=== PATIENT | male | born 2000 | race Caucasian/White ===

== ENCOUNTER 2023-02-25 17:10 | Emergency (ER) | payer BC ==
[~2023-02-25] VITALS: Ht 182.9 cm; Wt 68.0 kg
[~2023-02-25 17:10] MED LIST: ALBU90I INH; ALBU90OI INH; AMOCLA250S PO; AMOX50SU PO; CODACEE120 PO; PRED20 PO; RXAMOCLASU PO; RXCODGUASY PO
[2023-02-25 17:29] VITALS: BP 149/76
== END 2023-02-25 18:42 | disposition home or self-care (01) ==
LOC: ER 17:10
DX: J06.9 Acute upper respiratory infection, unspecified (principal); B34.9 Viral infection, unspecified; Z20.822 Contact with and (suspected) exposure to COVID-19
CPT/HCPCS: 96372; 99283-25; A9270; J1885

== ENCOUNTER 2023-03-01 10:14 | Emergency (ER) | payer BC ==
[~2023-03-01] VITALS: Ht 162.6 cm; Wt 59.0 kg
[2023-03-01 10:20] VITALS: BP 113/92
[2023-03-01] MEDS ORDERED: PENVK500 PO (10:36)
== END 2023-03-01 10:50 | disposition home or self-care (01) ==
LOC: ER 10:14
DX: J02.0 Streptococcal pharyngitis (principal); B95.5 Unspecified streptococcus as the cause of diseases classified elsewhere; Z88.2 Allergy status to sulfonamides
CPT/HCPCS: 87430; 99282; A9270; J1100

== ENCOUNTER 2023-03-09 07:13 | Emergency (ER) | payer BC ==
[~2023-03-09] VITALS: Ht 182.9 cm; Wt 68.0 kg
[~2023-03-09 07:13] MED LIST changes: +PENVK500 PO
[2023-03-09 07:35] VITALS: BP 132/79
[2023-03-09] MEDS ORDERED: Zithromax250 MG PO (08:25)
== END 2023-03-09 08:40 | disposition home or self-care (01) ==
LOC: ER 07:13
DX: J02.0 Streptococcal pharyngitis (principal); Z88.2 Allergy status to sulfonamides
CPT/HCPCS: 99282; A9270; J1100

== ENCOUNTER 2023-03-13 12:16 | Emergency (ER) | payer BC ==
[~2023-03-13] VITALS: Ht 182.9 cm; Wt 66.0 kg
[~2023-03-13 12:16] MED LIST changes: +Zithromax250 MG PO
[2023-03-13 12:46] LABS: Hematocrit 42.6 % (37.0-53.0); Hemoglobin 14.7 g/dL (13.5-17.5); Mean Corpuscular HGB 29.1 pg (26.0-34.0); Mean Corpuscular HGB Conc 34.5 g/dL (31.5-36.5); Mean Corpuscular Volume 84 fL (80-100); Mean Platelet Volume 9.9 fL (9.1-12.4); Platelet Count 228 K/mm3 (150-400); RDW Coefficient Variation 13.2 % (11.7-14.2); RDW Standard Deviation 40.2 fL (35.1-46.3); Red Blood Cell Count 5.05 M/mm3 (4.30-5.90); White Blood Cell Count 24.55 K/mm3 (4.00-11.30)
[2023-03-13 13:17] LABS: Albumin, Blood 3.2 g/dL (3.4-5.0); Albumin/Globulin Ratio 0.7 (0.8-1.8); Bun/Creatinine Ratio 17.8 (12.0-20.0); C-REACTIVE PROTEIN, EXT RANGE 0.496 mg/dL (0.000-0.300); Creatinine, Blood 0.73 mg/dL (0.60-1.20); Globulin, Blood 4.9 g/dL (2.2-4.0); Potassium, Blood 3.7 mmol/L (3.5-5.5); Total Protein, Blood 8.1 g/dL (6.4-8.2)
[2023-03-13 13:56] LABS: BASOPHILS PERCENT MAN 0 % (0-2); EOSINOPHILS PERCENT MAN 0 % (0-6); LYMPHOCYTES % ATYPICAL MANUAL 6 % (0-0); LYMPHOCYTES ABSOLUTE MAN 18.16 K/mm3 (0.84-5.20); LYMPHOCYTES PERCENT MAN 68 % (21-46); METAMYELOCYTE ABSOLUTE MAN 0.24 K/mm3 (0.00-0.00); METAMYELOCYTE PERCENT MAN 1 % (0-0); MONOCYTES ABSOLUTE MAN 0.73 K/mm3 (0.16-1.47); MONOCYTES PERCENT MAN 3 % (4-13); MYELOCYTE ABSOLUTE MAN 0.24 K/mm3 (0.00-0.00); MYELOCYTE PERCENT MAN 1 % (0-0); NEUTROPHILS ABSOLUTE MAN 5.15 K/mm3 (1.96-9.15); SEG NEUTROPHILS PERCENT MAN 21 % (41-73); TOTAL CELLS COUNTED 100
[2023-03-13 15:40] VITALS: BP 127/72
== END 2023-03-13 15:46 | disposition home or self-care (01) ==
LOC: ER 12:16
PROVIDERS: Physician Assistant
DX: B27.99 Infectious mononucleosis, unspecified with other complication (principal); K75.9 Inflammatory liver disease, unspecified; J02.9 Acute pharyngitis, unspecified
CPT/HCPCS: 80053; 85025; 86140; 86308; 99283

== ENCOUNTER 2024-05-19 04:46 | Emergency (ER) | payer BC, OTHER ==
[~2024-05-19] VITALS: Ht 177.8 cm; Wt 74.8 kg
[2024-05-19] MEDS ORDERED: Albuterol 2.5 MG/3 ML VIAL INH SCH (05:00)
[2024-05-19 05:15] LABS: BASOPHILS ABSOLUTE AUTO 0.05 K/mm3 (0.00-0.23); BASOPHILS PERCENT AUTO 1 % (0-2); EOSINOPHILS ABSOLUTE AUTO 0.15 K/mm3 (0.00-0.68); EOSINOPHILS PERCENT AUTO 2 % (0-6); Hemoglobin 15.6 g/dL (13.5-17.5); IMMATURE GRAN ABSOLUTE AUTO 0.01 K/mm3 (0.00-0.10); IMMATURE GRAN PERCENT AUTO 0 % (0-1); LYMPHOCYTES PERCENT AUTO 15 % (21-46); MONOCYTES PERCENT AUTO 10 % (4-13); Mean Corpuscular HGB Conc 35.5 g/dL (31.5-36.5); Mean Corpuscular Volume 85 fL (80-100); Mean Platelet Volume 9.3 fL (9.1-12.4); NEUTROPHILS ABSOLUTE AUTO 6.54 K/mm3 (1.96-9.15); NEUTROPHILS PERCENT AUTO 73 % (41-73); Platelet Count 270 K/mm3 (150-400); RDW Coefficient Variation 11.5 % (11.7-14.2); RDW Standard Deviation 35.2 fL (35.1-46.3); White Blood Cell Count 8.95 K/mm3 (4.00-11.30)
[2024-05-19 05:41] LABS: Albumin, Blood 4.3 g/dL (3.4-5.0); Albumin/Globulin Ratio 1.4 (0.8-1.8); Bilirubin, Total 0.6 mg/dL (0.1-1.0); Bun/Creatinine Ratio 22.6 (12.0-20.0); Calcium, Blood 9.4 mg/dL (8.5-10.1); Creatinine, Blood 0.88 mg/dL (0.60-1.20); Globulin, Blood 3.1 g/dL (2.2-4.0); Potassium, Blood 3.7 mmol/L (3.5-5.5); Total Protein, Blood 7.4 g/dL (6.4-8.2)
[2024-05-19 06:00] VITALS: BP 132/79
[2024-05-19 06:05] LABS: Influenza B, PCR NEGATIVE (NEGATIVE); Resp Syncytial Virus, PCR NEGATIVE (NEGATIVE); SARS-Cov-2 (COVID-19) PCR, MMC NEGATIVE (NEGATIVE)
[2024-05-19 08:13] LABS: Influenza A, PCR POSITIVE (NEGATIVE)
== END 2024-05-19 06:07 | disposition home or self-care (01) ==
LOC: ER 04:46
PROVIDERS: Emergency Medicine
DX: R07.89 Other chest pain (principal); Z88.2 Allergy status to sulfonamides
CPT/HCPCS: 0241U; 71045; 80053; 83690; 84484; 85025; 93005; 93010; 94644; 94664; 99284-25

== ENCOUNTER 2024-11-17 13:50 | Emergency (ER) | payer BC, OTHER ==
[~2024-11-17] VITALS: Ht 182.9 cm; Wt 81.7 kg
[2024-11-17 14:17] VITALS: BP 134/82
[2024-11-17] MEDS ORDERED: Ketorolac Tromethamine 15mg Vial IM ONE (14:20)
== END 2024-11-17 16:32 | disposition home or self-care (01) ==
LOC: ER 13:50
DX: S90.32XA Contusion of left foot, initial encounter (principal); Z88.2 Allergy status to sulfonamides; Z88.0 Allergy status to penicillin; Z88.1 Allergy status to other antibiotic agents; Z59.89 Other problems related to housing and economic circumstances; W20.8XXA Other cause of strike by thrown, projected or falling object, initial encounter
CPT/HCPCS: 73630; 99283-25; J1885